=== PATIENT | female | born 1945 | race Caucasian/White ===

== ENCOUNTER 2019-09-08 12:00 | Outpatient (RCR) | payer MEDICARE, OTHER, SELFPAY ==
--- NOTE | 2019-08-11 17:50 | HP.PTEVAL ---
Patient's Visit Information CAMRON JACOME is a 73 year old F referred to Physical Therapy by Latasha Valladares MD with a diagnosis of Multiple falls. Date of Evaluation: 08/11/19 Physical Therapist: Madi Lara, EVELINET, OCS, CSCS - Visit Plan Frequency: 2x /Week Duration: 4-6 Weeks Plan: Neurocom balance assessment then 2x/week for 4 weeks for... Blanace ex per result, VOR, and machine based general strength to Silver Sneakers. - Subjective Findings: Had 4 falls in last 11 months. Injured each fall including L shoulder . Just moved to [place] from [place] in May. Slipped in May while living in [facility] as she slipped on ice adn landed on L arm extended overhead. Might have caught her foot on something rather tahn slip. In July, she got out of bed barefoot and slipped on carpet turning L. Landed on L shoulder again. Still can't carry purse on L shoulder. In February went headfirst down steps making a left turn. Last August caught foot going down steps and fell down two steps. Turning left seems to be common factor. H/o L45 discectomy and has dealth with back problems for years. Had a severe chest injury thr prior year that made her invalis for 6 months and made her weak. Laundry and dressing is happening as needed and as normal. No cane or walker. No dizzyness noticeable except at times when gets stuff out of boxes. - Pain L shoulder Pain Intensity (Out of 10): 0 Pain Intensity Range: 0, 4 Comment: dressing, turning in bed. - Objective Walks slow but I, trasnfers I but a little painful up from supine. steps reciprocal with no rail but slow today and needs to use rail for safety. R SLS 10 sec adn L 2-3 sec. UE AROM slow and painful on L shoulder with resisted felxion and exteranal rotationn being most painful but good AROM WFL otherwise. - B hallpike britni. VOR walking is a real challenge. LE strength 4- B ankle and knees and 3+ hips, no asymmetries. reflexes 2/3 patella and aachilles B. Sensations eems at deficit to gross light touch in L lateral distal LE(L5). coordination to reciprocal tapping is normal - Balance Scores Functional Gait Assessment Score: 26 % Disability: 13.3400 CATSIB Score (Max score 120 seconds): 93 - Goals Goal 1:: FGA to reduce fall risk. Goal Time Frame: 4-6 Weeks Goal 2:: I appropr HEP of balance and gym based general silver Carlos strength protocol Goal Time Frame: 4-6 Weeks Goal 3:: Pt feel balance 50% improved adn strength functional. Goal Time Frame: 4-6 Weeks - Rehabilitation Potential Physical Therapy Diagnosis: frequent falls with some balance defciits Rehabilitation Potential: Good - Anticipated Interventions Patient/Client Instruction: Educate patient on: Condition, Plan of Care For the Purpose of:: To improve muscle performance and motor function, To increase tolerance to activity/condition/position, To improve gait and locomotor functions Therapeutic Exercise to Include: Strength training, Balance training, Gait and locomotor training For the Purpose of:: To improve muscle performance and motor function, To improve ability of physical actions for home/community/work/leisure, To improve gait and locomotor functions, To improve balance Thank you for the opportunity to evaluate your patient. For Medicare and Medicare HMO plans, please review the plan of care and approve it. It will need to be FAXED BACK to us at [phone] for Medicare purposes. For Medicare only, by signing this I certify the plan of care. Please let me know if there are questions or concerns regarding this plan of care. Physician Signature: Date:
--- NOTE | 2019-08-15 13:22 | HP.PTCOM_ITS ---
PT Communication Note 08/15/[address] Latasha Valladares MD , Thank you for the referral of Dayana to [facility] for balance Assessment. I have enclosed a copy for your review. In summation, she scored fairly well on most aspects of the test. She did have some right and left excursion deficits on the Limits of Stability Test. With these results in mind, I plan to see her 2x/week for 4 weeks to work on VOR exercises, lateral weight shifts and getting on a general exercise program that she can continue on her own. If there are questions regarding her PT or balacne test, please feel free to call me. Thank you once again. Sincerely, EVELINE GoodmanT, OCS, CSCS Contact Information
--- NOTE | 2019-09-08 13:10 | HP.PTDCSUM ---
HP - PT D/C Summary It has been my pleasure to treat CAMRON JACOME under orders from Latasha Valladares MD, for the diagnosis of Multiple falls for a total of 10 visit(s). Discharge Date: 09/08/19 Please see the following information for a summary of their discharge status. - Subjective Subjective: Better. Feels stronger. She is going the right direction, legs feels tronger. Feels ready to be on her own. No falls. - Pain L shoulder Pain Intensity (Out of 10): Unrated - Overall Improvement % Improvement: 90 - Objective Objective/Function: FGA +1 and feeling much better. Goals have been met adn patient feels comfortable continuing on her own in gym - Goals Goal 1:: FGA to reduce fall risk. Goal Progress: Goal Met Goal 2:: I appropr HEP of balance and gym based general [place] Therapist strength protocol Goal Progress: Goal Met Goal 3:: Pt feel balance 50% improved adn strength functional. Goal Progress: Goal Met - Plan Plan: d/c , pt may request script for L shoulder if she continues to get pain in that joint. - D/C Information Discharge Comments: Doing better and will cotninue on her own I in gym as [employer] member. If there are questions or concerns regarding this patient's physical therapy, please feel free to call me at [phone]. Thank you for the referral of this patient. Sincerely, Madi Lara, DPT, OCS, CSCS
== END 2019-09-08 19:00 | disposition home or self-care (01) ==
LOC: PT 12:00
PROVIDERS: Referring Provider Obstetrics & Gynecology Gynecology; Visit Provider Obstetrics & Gynecology Gynecology
DX: R29.6 Repeated falls (principal)
CPT/HCPCS: 97110; 97162; 97164; 97750

== ENCOUNTER → 2020-05-09 07:03 | Outpatient (CLI) | payer MEDICARE, OTHER, SELFPAY ==
--- NOTE | 2020-05-09 07:05 | BI_ITS ---
MAMMOGRAPHY - BILATERAL SCREENING REASON FOR EXAM: Female, 74 years old. Routine annual screening examination. PERTINENT HISTORY: NO FM HX , PAST STEREO BX''S X 3 AND ASPIRATINS COMPS FROM [facility] COMPS 10-25-18,10-20-17,10-17-16 TECHNIQUE: Digital bilateral breast puma (3D mammographic acquisition) in the CC and MLO projections. 2-D mediolateral oblique (MLO) and craniocaudad (CC) views of both breasts were obtained. CAD: Full Field Digital Mammography with Computer Added Detection was performed. COMPARISON: 10/20/2017 and 10/17/2016 FINDINGS: Breast Composition: The breasts are almost entirely fatty. There are no dominant masses or suspicious calcifications. No other significant abnormalities are identified. BI/SCREEN MAMM (CAD) W/PUMA BILAT IMPRESSION: Stable bilateral screening mammogram. Yearly follow-up mammogram recommended. (A) ASSESSMENT CATEGORY: BIRADS Category 2: Benign. A letter regarding these results will be sent to the patient by the facility within 30 days. Approximately 10% of breast cancers are not detected by mammography. A normal mammogram should not delay biopsy of a clinically suspicious abnormality. [id number] Electronically Signed: Robert Bob, at 13:20 EDT Tel , Service support ,
== END ==
PROVIDERS: Referring Provider Obstetrics & Gynecology Gynecology; Visit Provider Obstetrics & Gynecology Gynecology
DX: Z12.31 Encounter for screening mammogram for malignant neoplasm of breast (principal)
CPT/HCPCS: 77063; 77067

== ENCOUNTER → 2020-11-15 14:11 | Outpatient (CLI) | payer MEDICARE, OTHER, SELFPAY ==
[2020-11-15 13:30] VITALS: BMI 20.7
--- NOTE | 2020-11-15 14:48 | RAD_ITS ---
INDICATION: Lumbar radiculopathy EXAMINATION/TECHNIQUE: X-RAY - XR Spine Lumbar Min 4 Views COMPARISON: None. FINDINGS: VERTEBRAE: Preserved vertebral body height. No fracture. No spondylolisthesis. Slight right convex curvature of the lumbar spine. Preservation of the normal lumbar lordosis. Moderate multilevel facet arthropathy. DISCS: Mild multilevel disc space narrowing, most notable at L3-4 and L4-5. INCLUDED ABDOMEN: Included bowel gas pattern is non-obstructive. RAD/L/S Spine Min 4 Views IMPRESSION: No acute abnormalities. Mild multilevel lumbar spondylosis. Moderate multilevel facet arthropathy. Electronically Signed: August Perera MD at 17:01 EDT Tel , Service support ,
[2020-11-15 15:02] LABS: Basophil# 0.04 X10^3/uL; Basophil% 0.5 % (0-1); Eosinophil# 0.04 X10^3/uL; Eosinophils% 0.5 % (0-5); Hematocrit 39.8 % (37-47); Hemoglobin 12.9 g/dL (12.0-15.0); Lymphocyte % 30.3 % (19-41); Mean Corp Hgb Conc 32.4 g/dL (32-36); Mean Corpuscular Volume 89.4 fL (81-99); Mean Platelet Vol. 8.9 fl (6.2-12.0); Monocyte# 0.63 X10^3/uL; Monocyte% 7.6 % (0-10); NRBC Flagged by Analyzer 0 % (0-5); Neutrophil # 5.01 X10^3/uL (2.7-7.7); Neutrophil % 60.7 % (47-70); Platelet Count 256 K/mm3 (150-450); RBC Distribution Width CV 13.4 % (11.6-14.6); RBC Distribution Width SD 43.5 fl (35.1-43.9); Red Blood Count 4.45 M/mm3 (4.2-5.4); White Blood Count 8.3 K/mm3 (4.4-11.0)
[2020-11-15 15:17] LABS: Hemoglobin A1c 5.3 % (3.8-5.6)
[2020-11-15 15:49] LABS: ALB/GLOB Ratio 1.1 RATIO (0.9-2.4); AST(SGOT) 20 U/L (15-37); Alanine Aminotransfer ALT/SGPT 24 U/L (13-56); Albumin, Serum 4.3 g/dL (3.2-5.0); Alkaline Phosphatase 60 U/L (45-117); Anion Gap 6 (5-15); BUN 16 mg/dL (7-18); BUN/Creat Ratio 22.9 RATIO (10-20); Calcium,Total 9.5 mg/dL (8.5-10.1); Chloride 99 mmol/L (98-107); Cholesterol 149 mg/dL (200); EST Glomerular Filtration Rate 86 mL/min (>60); Est Glom Filt Rate - Afr Amer 105 mL/min (>60); Globulin 3.9 g/dL (2.2-4.2); Glucose 75 mg/dL (74-106); High Density Lipoprotein 67 mg/dL; Potassium 3.7 mmol/L (3.5-5.1); Protein, Total 8.2 g/dL (6.4-8.2); Sodium Level 133 mmol/L (136-145); Triglycerides 96 mg/dL; Very Low Density Lipoprotein 19 mg/dL (5-40)
[2020-11-15 15:51] LABS: Vitamin B12 649 pg/mL (211-911); Vitamin D,25 Hydroxy 59.3 ng/mL
== END ==
PROVIDERS: PCP Internal Medicine; Referring Provider Internal Medicine; Visit Provider Internal Medicine
DX: G62.9 Polyneuropathy, unspecified (principal); M81.0 Age-related osteoporosis without current pathological fracture; E78.5 Hyperlipidemia, unspecified; M54.16 Radiculopathy, lumbar region; Z86.39 Personal history of other endocrine, nutritional and metabolic disease
CPT/HCPCS: 36415; 72110; 80053; 80061; 82306; 82607; 83036; 85025

== ENCOUNTER → 2020-11-27 12:30 | Outpatient (CLI) | payer MEDICARE, OTHER, SELFPAY ==
[2020-11-15 13:30] VITALS: BMI 20.7
--- NOTE | 2020-11-27 12:33 | BD_ITS ---
STUDY: DUAL ENERGY X-RAY ABSORPTIOMETRY / DXA REASON FOR EXAM: Female, 75 years old. Osteoporosis TECHNIQUE: Bone Mineral Density (BMD) measurements of lumbar spine and bilateral hips were obtained. COMPARISON: None. FINDINGS: Lumbar Spine (L1-L4): g/cm2 (0.888) / T-score (-2.4) / Z-score (-0.7) Findings are suggestive of osteopenia with a high fracture risk. Left Femur Total: g/cm2 (0.667) / T-score (-2.7) / Z-score (-0.9) Left Femoral Neck: g/cm2 (0.618) / T-score (-3.0) / Z-score (-1.1) Right Femur Total: g/cm2 (0.630) / T-score (-3.0) / Z-score (-1.2) Right Femoral Neck: g/cm2 (0.601) / T-score (-3.1) / Z-score (-1.2) BD/Dexa Bone Density Study IMPRESSION: The patient is considered osteoporotic as outlined below according to World Chad Organization (WHO) criteria with a high fracture risk. Reference Information: The T-score is the number of standard deviations above or below the standard which is normal for young adults at their peak bone mineral density. The World Health Organization (WHO) interprets the T-scores as follows: Above -1 Normal bone density Between -1 and -2.5 Osteopenia Equal to / or below -2.5 Osteoporosis As a practical clinical guideline, osteopenia may be graded as follows: Mild -1 through -1.5 Moderate -1.6 through -2.0 Severe -2.1 through -2.4 The Z-score is the number of standard deviations above or below age-matched controls. A Z-score of less than -1.5 would be considered abnormal. References: 1. NIH Osteoporosis and Related Bone Diseases www osteo.org 2. International Society for Clinical Densitometry www iscd.org 3. National Osteoporosis Foundation www nof.org Electronically Signed: Zackary Velez MD at 15:03 EDT , Service support ,
== END ==
PROVIDERS: PCP Internal Medicine; Referring Provider Internal Medicine; Visit Provider Internal Medicine
DX: M81.0 Age-related osteoporosis without current pathological fracture (principal)
CPT/HCPCS: 77080

== ENCOUNTER 2020-12-31 15:00 | Outpatient (RCR) | payer MEDICARE, OTHER, SELFPAY ==
[2020-11-15 13:30] VITALS: BMI 20.7
--- NOTE | 2020-11-21 13:53 | HP.PTEVAL ---
Patient's Visit Information CAMRON JACOME is a 75 year old F referred to Physical Therapy by Dr. Kizzy Welch MD with a diagnosis of ab of gait and mobility. Date of Evaluation: 11/21/20 Physical Therapist: LADY Foley - Visit Plan Frequency: 2x /Week Duration: 6 Weeks Plan: 2X/ week for 4 weeks for vestibular inputs on and off the foam and EC/EO, walking with head turns, dynamic balance, turning 180 degrees, functional activities such as curbs and steps, and L LE strengthening with HEP - Subjective Pt has a history of falls with 4 falls in 11 months and she was here a year ago in Aug and they checked her for balance issues and she does not think that she had any neuro going on. She was going to do H&W but did not get to go due to COVID and she has been sitting for a year due to that. Her issue before was her L leg and she was falling to the L and she thought that she had a weak L leg. Now she notices that she can not stand alone on either leg and has to lean on something to put her pants on. She has a one level condo and she kind of wobbles and she holds onto hernandez and furniture. The last time she fell was 07-14-2019. She walks without AD. She notices a decrease senstation in the forefeet and she also noticed that the bottoms of her feet turn purple. It seems that when she is sitting that they turn purple. She has no DM. Back surgery in 1999. She has occ tingling down the L occ..... She is hoping that being active will help. Stairs: she fell 4 times down the stairs by tripping. She had different shoes each time. She hold onto hand rail. She is never dizzy. Sit to stand: can get up with out the use of her arms. 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 Apr 24, 2019 she spent 2 months in a hotel and slipped out of the bathroom and slid across the floor and latnded on L side with arm overhead and injured her L shoulder and did not get into see Dr for 2 days and did get an x-ray and no fracture. She did get into PT and had 4 sessions. Fell again on Dec 5th and reinjured it but did nothing because of COVID. She has not been able to use her L arm until this past weekend. She could not raise her arm, could not lay on the L side, could not lift anything because of the pain. Now she has a stiff neck but no stabbing sharp pains that she had. She does not want to do anything right now or PT for her shoulder as she is not having the stabbing pains any longer. Back pain: She reports that her back pain is ok. Dr wanted an x-ray due to L4/L5 and that disc have ruptued after the surgery.... but her pain is not there and when it is it is managable. - Objective Gait: Walks with very guarded gait with occ veering, when pt goes to turn she had LOB to the L. LE MMT: R hip flex 4-/5 and L hip flex 3+/5, B hip abd 4-/5, B hip ext 3+/5, R knee flex 4/5 and L knee flex 4-/5, B knee ext 4/5. Pt is able to walk on heels and toes. Stairs: able to go up and down the stairs recip with 2 handrails. SIt to stand: Pt is able to sit to stand not using her UE's. Patellar DTR's: 2/3. FGA: 21. CATSIB: 90/120 - Balance Scores Functional Gait Assessment Score: 21 % Disability: 30.0000 CATSIB Score (Max score 120 seconds): 90 - Goals Goal 1:: I HEP Goal Time Frame: 2-4 Weeks Goal 2:: Increase FGA score by 5 points to decrease fall risk (at time of eval: (FGA 21) Goal Time Frame: 4-6 Weeks Goal 3:: Increase CATSIB by 20 points ( 90 at time of the eval) to decrease fall risk. Goal Time Frame: 4-6 Weeks - Rehabilitation Potential Rehabilitation Potential: Good - Anticipated Interventions Patient/Client Instruction: Educate patient on: Condition, Plan of Care For the Purpose of:: To improve muscle performance and motor function, To improve ability to perform ADL's, To increase tolerance to activity/condition/position, To improve performance and independence with ADL's, To decrease level of supervision to perform tasks, To improve ability of physical actions for home/community/work/leisure, To improve gait and locomotor functions, To improve endurance, To improve balance, To improve safety with gait Therapeutic Exercise to Include: Strength training, Balance training, Postural training, Flexibilty training, Gait and locomotor training, Neuromotor development, Active ROM For the Purpose of:: To improve muscle performance and motor function, To improve ability to perform ADL's, To increase tolerance to activity/condition/position, To improve performance and independence with ADL's, To decrease level of supervision to perform tasks, To improve ability of physical actions for home/community/work/leisure, To improve gait and locomotor functions, To improve balance, To improve safety with gait Functional Training to Include: Gait training For the Purpose of:: To improve gait and locomotor functions, To improve safety with gait Thank you for the opportunity to evaluate your patient. For Medicare and Medicare HMO plans, please review the plan of care and approve it. It will need to be FAXED BACK to us at [phone] for Medicare purposes. For Medicare only, by signing this I certify the plan of care. Please let me know if there are questions or concerns regarding this plan of care. Physician Signature: Date:
--- NOTE | 2021-05-15 11:47 | HP.PTDCSUM ---
It has been my pleasure to treat CAMRON JACOME referred by Dr. Kizzy Welch MD, with the diagnosis of ab of gait and mobility for a total of 12 visit(s). Discharge Date: 12/31/20 Please see the following information for a summary of their discharge status. Subjective: Pt has been doing a chin tuck every morning and that helps. She has also been doing some upper trap and levator. She still feels sorness with doing work around the house. back pain Pain Intensity (Out of 10): 0 neck pain Pain Intensity (Out of 10): 0 % Improvement: 80 Objective/Function: FGA 28/30. CATSIB 120/120. Stairs: up and down recip with no hand rail with SBA Goal 1:: I HEP Goal Progress: Goal Met Goal 2:: Increase FGA score by 5 points to decrease fall risk (at time of eval: (FGA 21) Goal Progress: Goal Met Goal 3:: Increase CATSIB by 20 points ( 90 at time of the eval) to decrease fall risk. Goal Progress: Goal Met Plan: DC PT to HEP Discharge Comments: DC PT to HEP If there are questions or concerns regarding this patient's physical therapy, please feel free to call me at [phone]. Thank you for the referral of this patient. Sincerely, Faiza Moya, LADY Balance/Gait/Functional tests - Balance/Special Test Scores Functional Gait Assessment Score: 28 % Disability: 6.6700 CATSIB Score (Max score 120 seconds): 120 Lower Extremity Functional Score: 60
== END 2020-12-31 19:00 | disposition home or self-care (01) ==
LOC: PT 15:00
PROVIDERS: PCP Internal Medicine; Referring Provider Internal Medicine; Visit Provider Internal Medicine
DX: R26.89 Other abnormalities of gait and mobility (principal); M25.512 Pain in left shoulder; M54.16 Radiculopathy, lumbar region
CPT/HCPCS: 97110; 97140; 97162; 97530

== ENCOUNTER → 2021-12-24 | Outpatient (CLI) | payer MEDICARE, OTHER, SELFPAY ==
--- NOTE | 2021-12-24 14:50 | RAD_ITS ---
EXAM: XR CERVICAL SPINE, 2 OR 3 VIEWS CLINICAL INDICATION: Chronic neck pain TECHNIQUE: Frontal and lateral views of the cervical spine. This report was created using [employer] report [employer] technology. COMPARISON: None. FINDINGS: VERTEBRAE: Unremarkable. Preserved vertebral body height. No acute fracture. No spondylolisthesis. Preservation of the normal cervical lordosis. No significant facet arthropathy. DISC SPACES: Unremarkable. Disc spaces are maintained. SOFT TISSUES: Unremarkable. No prevertebral soft tissue widening. LUNG APICES: Clear. RAD/Cerv Spine 2 or 3 Views IMPRESSION: No evidence of acute fracture or spondylolisthesis. Electronically Signed: Eric Gilmore MD at 18:03 EDT ,
== END | disposition home or self-care (01) ==
LOC: MTRAD 14:35
PROVIDERS: PCP Internal Medicine; Referring Provider Internal Medicine; Visit Provider Internal Medicine
DX: M54.2 Cervicalgia (principal); G89.29 Other chronic pain
CPT/HCPCS: 72040

== ENCOUNTER → 2022-01-29 | Outpatient (CLI) | payer MEDICARE, OTHER, SELFPAY ==
--- NOTE | 2022-01-29 07:01 | BI_ITS ---
MAMMOGRAPHY - BILATERAL SCREENING REASON FOR EXAM: Female, 76 years old. Routine annual screening examination. PERTINENT HISTORY: Reported history of past stereotactic biopsies. No personal or family history of breast cancer. TECHNIQUE: Digital bilateral breast puma (3D mammographic acquisition) in the CC and MLO projections. 2-D mediolateral oblique (MLO) and craniocaudad (CC) views of both breasts were obtained. CAD: Full Field Digital Mammography with Computer Added Detection was performed. COMPARISON: Mammogram from 05/09/2020, 03/05/2012, 02/18/2011. Left breast diagnostic mammogram from 02/07/2010 FINDINGS: Breast Composition: The breasts are heterogeneously dense, which may obscure small masses. There is a new asymmetry seen only on cc views, in the left inner breast posterior depth approximately 9.5 cm posterior to nipple adjacent to a small stable benign-appearing calcification. Further assessment with spot compression views and ultrasound if needed are recommended. No other significant abnormalities are identified. BI/SCRN MAMM (CAD)W/PUMA BILAT IMPRESSION: Further imaging evaluation recommended, as described above. (E) Recall Side: Left Breast ASSESSMENT CATEGORY: BIRADS Category 0: Incomplete. Need additional imaging evaluation. A letter regarding these results will be sent to the patient by the facility within 30 days. Approximately 10% of breast cancers are not detected by mammography. A normal mammogram should not delay biopsy of a clinically suspicious abnormality. [id number] Electronically Signed: Josue Bernabe, at 10:15 EDT ,
== END | disposition home or self-care (01) ==
LOC: OPBI 07:00
PROVIDERS: PCP Internal Medicine; Visit Provider Internal Medicine
DX: Z12.31 Encounter for screening mammogram for malignant neoplasm of breast (principal)
CPT/HCPCS: 77063; 77067

== ENCOUNTER → 2022-01-30 | Outpatient (CLI) | payer MEDICARE, OTHER, SELFPAY ==
--- NOTE | 2022-01-30 09:03 | BI_ITS ---
MAMMOGRAPHY - UNILATERAL DIAGNOSTIC: LEFT BREAST REASON FOR EXAM: Female, 76 years old. ABN MAMM PERTINENT HISTORY: Non-contributory. TECHNIQUE: Digital examination. Mediolateral oblique (MLO) and craniocaudad (CC) views of the breast were obtained. CAD: CAD was not performed on this study. COMPARISON: 01/29/2022 FINDINGS: Breast Composition: The breasts are heterogeneously dense, which may obscure small masses. Focal compression views confirm a 1 cm irregular obscured equal density mass in the lower inner quadrant of the left breast at posterior depth and ultrasound is recommended for further evaluation. No other significant abnormalities are identified. BI/DIAG MAMM W/CAD, UNILAT IMPRESSION: Further ultrasonographic evaluation recommended, as described above. ASSESSMENT CATEGORY: BIRADS Category 0: Incomplete. Need additional imaging evaluation. A letter regarding these results will be sent to the patient by the facility within 30 days. FOLLOW-UP RECOMMENDATION: Ultrasound recommended. (I) Approximately 10% of breast cancers are not detected by mammography. A normal mammogram should not delay biopsy of a clinically suspicious abnormality. Electronically Signed: Reid Parham MD at 9:49 EDT ,
--- NOTE | 2022-01-30 09:53 | US_ITS ---
STUDY: ULTRASOUND BREAST - LEFT REASON FOR EXAM: Female, 76 years old. Abnormal screening mammogram. TECHNIQUE: Axial and longitudinal images of the LEFT breast were performed with a high resolution ultrasound transducer. # OF IMAGES: 53 COMPARISON: Screening mammogram 01/29/2022, diagnostic mammogram earlier today FINDINGS: LEFT Breast: Homogeneous fatty background echotexture. Multiple longitudinal and transverse ultrasound images of the lower inner quadrant of the left breast fail to demonstrate a discrete mass most consistent with normal breast parenchyma.: US/Breast Limited Unilateral IMPRESSION: Normal left breast ultrasound consistent with normal breast parenchyma. ASSESSMENT CATEGORY: BIRADS Category 1: Negative. A letter regarding these results will be sent to the patient by the facility within 30 days. Electronically Signed: Reid Parham MD at 11:25 EDT ,
== END | disposition home or self-care (01) ==
LOC: OPBI 09:01
PROVIDERS: PCP Internal Medicine; Visit Provider Internal Medicine
DX: R92.8 Other abnormal and inconclusive findings on diagnostic imaging of breast (principal)
CPT/HCPCS: 76642; 77065

== ENCOUNTER → 2022-02-11 | Outpatient (CLI) | payer MEDICARE, OTHER, SELFPAY ==
[2022-02-11 15:06] LABS: Absolute Lymphocyte Count 1.65 X10^3/uL (0.83-4.51); Absolute Neutrophil Count 2.9 X10^3/uL (2.0-7.7); Basophil# 0.03 X10^3/uL; Basophil% 0.6 % (0-1); Eosinophil# 0.03 X10^3/uL; Eosinophils% 0.6 % (0-5); Hematocrit 37.7 % (37-47); Hemoglobin 12.3 g/dL (12.0-15.0); Lymphocyte # 1.65 X10^3/ul (0.83-4.51); Lymphocyte % 32.2 % (19-41); Mean Corp Hgb Conc 32.6 g/dL (32-36); Mean Corpuscular Hgb 29.5 pg (27.0-32.0); Mean Corpuscular Volume 90.4 fL (81-99); Monocyte# 0.48 X10^3/uL; Monocyte% 9.4 % (0-10); NRBC Flagged by Analyzer 0 % (0-5); Neutrophil # 2.93 X10^3/uL (2.7-7.7); Platelet Count 212 K/mm3 (150-450); RBC Distribution Width CV 13.1 % (11.6-14.6); RBC Distribution Width SD 42.9 fl (35.1-43.9); Red Blood Count 4.17 M/mm3 (4.2-5.4); White Blood Count 5.1 K/mm3 (4.4-11.0)
[2022-02-11 15:41] LABS: ALB/GLOB Ratio 1.1 RATIO (0.9-2.4); AST(SGOT) 21 U/L (15-37); Alanine Aminotransfer ALT/SGPT 21 U/L (13-56); Albumin, Serum 3.8 g/dL (3.2-5.0); Alkaline Phosphatase 45 U/L (45-117); Anion Gap 4 (5-15); BUN 8 mg/dL (7-18); BUN/Creat Ratio 11.6 RATIO (10-20); Chloride 102 mmol/L (98-107); Cholesterol 142 mg/dL (200); Creatinine, Serum 0.69 mg/dL (0.55-1.02); EST Glomerular Filtration Rate 88 mL/min (>60); Est Glom Filt Rate - Afr Amer 106 mL/min (>60); Globulin 3.5 g/dL (2.2-4.2); Glucose 101 mg/dL (74-106); High Density Lipoprotein 63 mg/dL; Potassium 3.9 mmol/L (3.5-5.1); Protein, Total 7.3 g/dL (6.4-8.2); Sodium Level 136 mmol/L (136-145); Triglycerides 109 mg/dL; Very Low Density Lipoprotein 22 mg/dL (5-40)
== END | disposition home or self-care (01) ==
LOC: BIMLAB 13:29
PROVIDERS: PCP Internal Medicine; Visit Provider Internal Medicine
DX: E78.5 Hyperlipidemia, unspecified (principal)
CPT/HCPCS: 36415; 80053; 80061; 85025

== ENCOUNTER → 2023-04-02 | Outpatient (CLI) | payer MEDICARE, OTHER, SELFPAY ==
[2023-04-02 16:29] LABS: Absolute Lymphocyte Count 2.13 X10^3/uL (0.83-4.51); Absolute Neutrophil Count 3.3 X10^3/uL (2.0-7.7); Basophil# 0.03 X10^3/uL; Basophil% 0.5 % (0-1); Eosinophil# 0.04 X10^3/uL; Eosinophils% 0.7 % (0-5); Hematocrit 38.9 % (37-47); Hemoglobin 12.8 g/dL (12.0-15.0); Lymphocyte # 2.13 X10^3/ul (0.83-4.51); Lymphocyte % 34.8 % (19-41); Mean Corp Hgb Conc 32.9 g/dL (32-36); Mean Corpuscular Hgb 29.5 pg (27.0-32.0); Mean Corpuscular Volume 89.6 fL (81-99); Mean Platelet Vol. 9.7 fl (6.2-12.0); Monocyte# 0.57 X10^3/uL; Monocyte% 9.3 % (0-10); NRBC Flagged by Analyzer 0 % (0-5); Neutrophil # 3.33 X10^3/uL (2.7-7.7); Neutrophil % 54.4 % (47-70); Platelet Count 215 K/mm3 (150-450); RBC Distribution Width CV 13.3 % (11.6-14.6); RBC Distribution Width SD 43.8 fl (35.1-43.9); Red Blood Count 4.34 M/mm3 (4.2-5.4); White Blood Count 6.1 K/mm3 (4.4-11.0)
[2023-04-02 16:52] LABS: Vitamin D,25 Hydroxy 93.3 ng/mL
[2023-04-02 16:59] LABS: ALB/GLOB Ratio 1.1 RATIO (0.9-2.4); AST(SGOT) 21 U/L (15-37); Alanine Aminotransfer ALT/SGPT 23 U/L (13-56); Albumin, Serum 4.1 g/dL (3.2-5.0); Alkaline Phosphatase 47 U/L (45-117); Anion Gap 7 (5-15); BUN 11 mg/dL (7-18); BUN/Creat Ratio 16.7 RATIO (10-20); Chloride 100 mmol/L (98-107); Cholesterol 133 mg/dL (200); Creatinine, Serum 0.66 mg/dL (0.55-1.02); EST Glomerular Filtration Rate 92 mL/min (>60); Est Glom Filt Rate - Afr Amer 112 mL/min (>60); Globulin 3.6 g/dL (2.2-4.2); Glucose 86 mg/dL (74-106); High Density Lipoprotein 69 mg/dL; Potassium 4.2 mmol/L (3.5-5.1); Protein, Total 7.7 g/dL (6.4-8.2); Sodium Level 134 mmol/L (136-145); T4 Free Direct 1.25 ng/dL (0.76-1.46); Thyroid Stim Hormone (TSH) 2.76 uIU/mL (0.358-3.74); Triglycerides 55 mg/dL; Very Low Density Lipoprotein 11 mg/dL (5-40)
== END | disposition home or self-care (01) ==
LOC: BIMLAB 15:14
PROVIDERS: PCP Internal Medicine; Referring Provider Internal Medicine; Visit Provider Internal Medicine
DX: E55.9 Vitamin D deficiency, unspecified (principal); E78.5 Hyperlipidemia, unspecified; I10 Essential (primary) hypertension
CPT/HCPCS: 36415; 80053; 80061; 82306; 84439; 84443; 85025

== ENCOUNTER → 2023-04-14 | Outpatient (CLI) | payer MEDICARE, OTHER, SELFPAY ==
--- NOTE | 2023-04-14 15:11 | BI_ITS ---
MAMMOGRAPHY - BILATERAL SCREENING REASON FOR EXAM: Female, 77 years old. Routine annual screening examination. PERTINENT HISTORY: Non-contributory. History of prior stereotactic breast biopsies. TECHNIQUE: Digital bilateral breast puma (3D mammographic acquisition) in the CC and MLO projections. 2-D mediolateral oblique (MLO) and craniocaudad (CC) views of both breasts were obtained. CAD: Full Field Digital Mammography with Computer Added Detection was performed. COMPARISON: Comparison is made with prior study dated January 29, 2022 and May 09, 2020. FINDINGS: Breast Composition: The breasts are heterogeneously dense, which may obscure small masses. There are no dominant masses or suspicious calcifications. 2 tissue markers are seen in the superior retroareolar region of the left breast. No other significant abnormalities are identified. There has been no significant change since the prior study. BI/SCRN MAMM (CAD)W/PUMA BILAT IMPRESSION: Stable bilateral screening mammogram. Yearly follow-up mammogram recommended. (A) ASSESSMENT CATEGORY: BIRADS Category 2: Benign. A letter regarding these results will be sent to the patient by the facility within 30 days. Approximately 10% of breast cancers are not detected by mammography. A normal mammogram should not delay biopsy of a clinically suspicious abnormality. [id number] Electronically Signed: Zackary Velez MD at 8:35 EDT ,
--- NOTE | 2023-04-14 15:15 | BD_ITS ---
STUDY: DUAL ENERGY X-RAY ABSORPTIOMETRY / DXA REASON FOR EXAM: Female, 77 years old. Post menopausal TECHNIQUE: Bone Mineral Density (BMD) measurements of lumbar spine and bilateral hips were obtained. COMPARISON: Comparison is made with prior study November 27, 2020. FINDINGS: Lumbar Spine (L1-L4): g/cm2 (0.791) / T-score (-2.3) / Z-score (0.3) Findings are suggestive of osteopenia with a high fracture risk. Left Femur Total: g/cm2 (0.619) / T-score (-2.6) / Z-score (-0.7) Left Femoral Neck: g/cm2 (0.517) / T-score (-3.0) / Z-score (-0.7) Right Femur Total: g/cm2 (0.591) / T-score (-2.9) / Z-score (-0.9) Right Femoral Neck: g/cm2 (0.502) / T-score (-3.1) / Z-score (-0.9) The T-Scores on the most recent prior examination were: Lumbar Spine (L1-L4): There has been improvement of bone density since the previous examination. Left Femur Total: which represents an improvement of 1.5%. Right Femur Total: which represents an improvement of 2.8%. BD/Dexa Bone Density Study IMPRESSION: The patient is considered osteoporotic as outlined below according to World Chad Organization (WHO) criteria with a high fracture risk. There has been improvement of bone density since the previous examination. Reference Information: The T-score is the number of standard deviations above or below the standard which is normal for young adults at their peak bone mineral density. The World Health Organization (WHO) interprets the T-scores as follows: Above -1 Normal bone density Between -1 and -2.5 Osteopenia Equal to / or below -2.5 Osteoporosis As a practical clinical guideline, osteopenia may be graded as follows: Mild -1 through -1.5 Moderate -1.6 through -2.0 Severe -2.1 through -2.4 The Z-score is the number of standard deviations above or below age-matched controls. A Z-score of less than -1.5 would be considered abnormal. References: 1. NIH Osteoporosis and Related Bone Diseases www osteo.org 2. International Society for Clinical Densitometry www iscd.org 3. National Osteoporosis Foundation www nof.org Electronically Signed: Zackary Velez MD at 8:56 EDT ,
== END | disposition home or self-care (01) ==
LOC: OPBD 15:09
PROVIDERS: PCP Internal Medicine; Referring Provider Internal Medicine; Visit Provider Internal Medicine
DX: M81.0 Age-related osteoporosis without current pathological fracture (principal); Z12.31 Encounter for screening mammogram for malignant neoplasm of breast
CPT/HCPCS: 77063; 77067; 77080

== ENCOUNTER → 2023-05-01 | Outpatient (CLI) | payer MEDICARE, OTHER, SELFPAY ==
--- NOTE | 2023-05-01 14:49 | ST.MBS ---
Modified Barium Swallow Patient Information Study Date: 05/01/23 Study Time: 13:00 Direct Billable Minutes: 88 Total Minutes procedure & reportin Diagnosis: Dysphagia (R13.10) Referring Physician: Kizzy Welch Reason for Referral: Objectively assess swallow function, assess risk for aspiration, and determine recommendations for least restrictive diet textures and compensatory strategies to improve safety of swallow. Medical History: The patient has PMH including HTN, osteoporosis, DDD, GERD, and hiatal hernia (SEE EMR for full PMH). She is a retired RN. She has had GERD since 1994. She took medication for a couple of years, but then discontinued use. She had an EGD completed in 2004 which revealed hiatal hernia. She reports frequent belching with food and drink. She also unintentionally experienced 20lbs of weight loss in 2019 that she has not been able to gain back despite efforts to eat more. Her voice is very hoarse and often goes out. Per patient, it is worse in the morning. She has not been seen by an ENT. The patient was referred for MBSS for increased swallowing difficulty. She reports coughing a lot due to a tickle on her throat. She sometimes gets in coughing spells with food or drink when it feels stuck in her throat. She has discontinued taking certain vitamins due to them feeling like she was choking on them. It can be hard to swallow bread as it feels it gets stuck. Current Diet Ordered: Regular textures / Thin liquids Dentition: WNL Mental Status: WNL Respiratory Status: Oxygenating on Room Air Penetration-Aspiration Scale Penetration-Aspiration Scale: OBJECTIVE ASSESSMENT OF SWALLOW FUNCTION (QUANTITATIVE ? PER TRIAL): PENETRATION / ASPIRATION SCALE (GARCÍA): 1 = does not enter airway 2 = enters airway/above vocal folds/ejected 3 = enters airway/above vocal folds/not ejected 4 = enters airway/contacts vocal folds/ejected 5 = enters airway/contacts vocal folds/not ejected 6 = enters airway/below vocal folds/ejected 7 = enters airway/below vocal folds/not ejected despite effort 8 = enters airway/below vocal folds/no effort VIDEOFLOROSCOPIC SCALE SCORE (GARCÍA): Grade I = aspiration of material that has penetrated into the laryngeal vestibule, intact cough reflex Grade II = aspiration < 10 % of the bolus, intact cough reflex Grade III = aspiration of < 10 % of the bolus, reduced cough reflex or aspiration of > 10 % of the bolus, intact cough reflex Grade IV = aspiration of > 10 % of the bolus, reduced cough reflex Penetration-Aspiration Scale Score Thin Liquid via teaspoon: Result: 1= does not enter airway Thin Liquid via teaspoon Trial 2: Result: 1= does not enter airway Thin liquid via single cup sip: Result: 2= enter airway/above vocal folds/ejected (reflexive throat clear effectively cleared penetrated contrast) Tedrow thick liquid via single cup sip: Result: 1= does not enter airway Pudding via teaspoon with esophageal screen: Result: 1= does not enter airway Thin liquid via sequential straw sip with esophageal screen: Result: 4= enters airway/contacts vocal folds/ejected (reflexive throat clear effectively cleared penetrated contrast) 1/2 Cookie: Result: 1= does not enter airway Thin liquid via single straw sip with effortful swallow: Result: 2= enter airway/above vocal folds/ejected Oral Phase Labial Seal: No Labial Escape Tongue Control During Bolus Hold: Posterior escape of less than half of bolus Bolus Preparation/Mastication: Timely and efficient chewing and mashing Bolus Transport/Lingual Motion: Delayed initiation of tongue motion Oral Residue: Residue collection on oral structures (piecemeal deglutition with pudding) Pharyngeal Phase Initiation of Pharyngeal Swallow: Bolus head in pyriforms Soft Palate Elevation: No bolus between soft palate and pharyngeal wall Laryngeal Elevation: Partial superior movement thyroid cart/partial apprx aryt-epig petiole Anterior Hyoid Excursion: Partial anterior movement Epiglottic Movement: Complete inversion Laryngeal Vestibule Closure at Height of Swallow: Incomplete; narrow column of air/contrast in laryngeal vestibule Pharyngeal Stripping Wave: Present - diminished Pharyngoesophageal Segment Opening: Parital distension and partial duration; parital obstruction of flow Tongue Base Retraction: Narrow column of contrast between tongue base & post. pharyngeal wall Pharyngeal Residue: Collection of residue within or on pharyngeal structures Esophageal Phase Esophageal Clearance: Esophageal retention w/ retrograde flow below pharyngoesophageal seg. Diagnosis/Impression Diagnosis: Mild oropharyngeal dysphagia (R13.12), Esophageal dysphagia (R13.14) Impression: The oral phase is primarily marked by... -Decreased bolus control with premature loss of thin liquids to the pharynx prior to swallow onset. With sequential sips via straw, thin liquids spilled to the laryngeal vestibule prior to swallow onset, placing the patient at increased risk for aspiration. The pharyngeal phase is primarily marked by... -Mildly decreased airway closure during the swallow due to decreased anterior hyoid excursion and laryngeal elevation. The patient demonstrated laryngeal penetration of thin liquids 3X during the study. She demonstrated reflexive throat clear on 2 of 3 instances. All three trials fully ejected from the laryngeal vestibule after the swallow. No aspiration occurred. -Mildly decreased tongue base retraction, pharyngeal stripping wave, and UES opening/duration which resulted in mild pharyngeal residues after the swallow. The esophageal phase is primarily marked by... -Esophageal retention of pudding throughout mid and lower esophagus, which mostly cleared with thin liquid wash. Mild retention of thin liquids in lower esophagus with min retrograde flow. Recommendations Diet: Regular Textures and Thin Liquids Compensatory Strategies: Small Bites, Small Sips (Effortful swallows when taking sips), Slow Rate, Alternate bites/solids and sips/liquids (Take a sip after every 1-2 bites to promote improved esophageal clearance of foods), Sitting upright and Remain sitting upright for 30 minutes after PO intake Recommend Repeat Modified Barium Swallow: No Need for Skilled Speech Therapy Services: Yes Comment: Will recommend dysphagia therapy for home oropharyngeal exercise program to promote improved bolus control, laryngeal elevation, anterior hyoid excursion, UES opening/duration, and pharyngeal contraction (lingual resistance, CTAR, Ramona, effortful swallow, Shaker). Would strongly recommend voice therapy following recommended ENT consult to address hoarseness and to implement vocal hygiene strategies. Recommended Referrals: GI Consult (Esophageal retention of pudding throughout mid and lower esophagus. Retention of liquids in lower esophagus with min retrograde flow.), ENT Consult (Hoarse vocal quality, patient often experiences her voice going out) and Dietitian Consult (Patient lost 20lbs in 2-3 months in 2019 and has been unable to gain it back.) Education Completed: 1. Described result of evaluation., 2. Pt understands evaluation & agrees with goals and treatment plan. and 7. Pt requires further education on strategies & risks. Status Active ST Patient: Active Contact Information [facility] Speech Therapy:: Vilma Parker M.A. [facility]SAFET[employer] SEC[employer] OFFICER Speech-Language Pathologist [facility] [address] [place] [address] [phone]
== END | disposition home or self-care (01) ==
LOC: RAD 12:33
PROVIDERS: PCP Internal Medicine; Referring Provider Internal Medicine; Visit Provider Internal Medicine
DX: R13.10 Dysphagia, unspecified (principal)
CPT/HCPCS: 74230; 92611

== ENCOUNTER → 2024-04-12 | Outpatient (CLI) | payer MEDICARE, OTHER, SELFPAY ==
[2024-04-12 17:48] LABS: Absolute Lymphocyte Count 1.14 X10^3/uL (0.83-4.51); Absolute Neutrophil Count 3.1 X10^3/uL (2.0-7.7); Basophil# 0.03 X10^3/uL; Basophil% 0.6 % (0-1); Eosinophil# 0.02 X10^3/uL; Eosinophils% 0.4 % (0-5); Hematocrit 37.1 % (37-47); Hemoglobin 11.9 g/dL (12.0-15.0); Lymphocyte # 1.14 X10^3/ul (0.83-4.51); Lymphocyte % 23.6 % (19-41); Mean Corp Hgb Conc 32.1 g/dL (32-36); Mean Corpuscular Hgb 28.8 pg (27.0-32.0); Mean Corpuscular Volume 89.8 fL (81-99); Mean Platelet Vol. 9.6 fl (6.2-12.0); Monocyte# 0.57 X10^3/uL; Monocyte% 11.8 % (0-10); NRBC Flagged by Analyzer 0 % (0-5); Neutrophil # 3.05 X10^3/uL (2.7-7.7); Neutrophil % 63.2 % (47-70); Platelet Count 174 K/mm3 (150-450); RBC Distribution Width CV 13.1 % (11.6-14.6); RBC Distribution Width SD 43.3 fl (35.1-43.9); Red Blood Count 4.13 M/mm3 (4.2-5.4); White Blood Count 4.8 K/mm3 (4.4-11.0)
[2024-04-12 18:27] LABS: Vitamin D,25 Hydroxy 66.6 ng/mL
[2024-04-12 18:44] LABS: ALB/GLOB Ratio 1.2 RATIO (0.9-2.4); AST(SGOT) 26 U/L (15-37); Alanine Aminotransfer ALT/SGPT 24 U/L (13-56); Albumin, Serum 4.1 g/dL (3.2-5.0); Alkaline Phosphatase 48 U/L (45-117); Anion Gap 10 (5-15); BUN 19 mg/dL (7-18); BUN/Creat Ratio 27.9 RATIO (10-20); Calcium,Total 10.5 mg/dL (8.5-10.1); Chloride 99 mmol/L (98-107); Cholesterol 148 mg/dL (200); Creatinine, Serum 0.68 mg/dL (0.55-1.02); EST Glomerular Filtration Rate 88 mL/min (>60); Est Glom Filt Rate - Afr Amer 107 mL/min (>60); Globulin 3.5 g/dL (2.2-4.2); Glucose 84 mg/dL (74-106); High Density Lipoprotein 70 mg/dL; Potassium 3.5 mmol/L (3.5-5.1); Protein, Total 7.6 g/dL (6.4-8.2); Sodium Level 134 mmol/L (136-145); Triglycerides 76 mg/dL; Very Low Density Lipoprotein 15 mg/dL (5-40)
== END | disposition home or self-care (01) ==
LOC: MTLAB 16:47
PROVIDERS: PCP Internal Medicine; Referring Provider Internal Medicine; Visit Provider Internal Medicine
DX: E78.5 Hyperlipidemia, unspecified (principal); M81.0 Age-related osteoporosis without current pathological fracture
CPT/HCPCS: 36415; 80053; 80061; 82306; 85025

== ENCOUNTER → 2024-04-15 | Outpatient (CLI) | payer MEDICARE, OTHER, SELFPAY ==
--- NOTE | 2024-04-15 08:03 | BI_ITS ---
MAMMOGRAPHY - BILATERAL SCREENING REASON FOR EXAM: Female, 78 years old. Routine annual screening examination. PERTINENT HISTORY: Non-contributory. History of prior stereotactic breast biopsies. TECHNIQUE: Digital bilateral breast puma (3D mammographic acquisition) in the CC and MLO projections. 2-D mediolateral oblique (MLO) and craniocaudad (CC) views of both breasts were obtained. CAD: Full Field Digital Mammography with Computer Added Detection was performed. COMPARISON: Comparison is made with prior study of April 14, 2023 and January 29, 2022. FINDINGS: Breast Composition: The breasts are heterogeneously dense, which may obscure small masses. There is a 2 cm x 1.6 cm well-defined nodule in the upper central portion of the left breast. A tissue clip marker seen within. A tissue clip marker is also seen in the retroareolar region of the left breast. No other significant abnormalities are identified. BI/SCRN MAMM (CAD)W/PUMA BILAT IMPRESSION: 2 cm x 1.6 cm well-defined nodule in the upper central portion of the left breast. Correlation with ultrasound is recommended. ASSESSMENT CATEGORY: BIRADS Category 0: Incomplete. Need additional imaging evaluation. A letter regarding these results will be sent to the patient by the facility within 30 days. Approximately 10% of breast cancers are not detected by mammography. A normal mammogram should not delay biopsy of a clinically suspicious abnormality. [id number] Electronically Signed: Zackary Velez MD at 8:46 EDT ,
== END | disposition home or self-care (01) ==
LOC: OPBI 08:02
PROVIDERS: PCP Internal Medicine; Referring Provider Internal Medicine; Visit Provider Internal Medicine
DX: Z12.31 Encounter for screening mammogram for malignant neoplasm of breast (principal)
CPT/HCPCS: 77063; 77067

== ENCOUNTER → 2024-04-18 | Outpatient (CLI) | payer MEDICARE, OTHER, SELFPAY ==
[2024-04-18 16:36] LABS: Vitamin B12 673 pg/mL (211-911)
== END | disposition home or self-care (01) ==
LOC: BIMLAB 14:18
PROVIDERS: PCP Internal Medicine; Referring Provider Internal Medicine; Visit Provider Internal Medicine
DX: E07.9 Disorder of thyroid, unspecified (principal); G62.9 Polyneuropathy, unspecified
CPT/HCPCS: 36415; 82607; 84439; 84443

== ENCOUNTER → 2024-04-20 | Outpatient (CLI) | payer MEDICARE, OTHER, SELFPAY ==
--- NOTE | 2024-04-20 07:45 | US_ITS ---
STUDY: ULTRASOUND BREAST - LEFT REASON FOR EXAM: Female, 78 years old. Abnormal screening mammogram. TECHNIQUE: Axial and longitudinal images of the LEFT breast were performed with a high resolution ultrasound transducer. # OF IMAGES: [id number] COMPARISON: Comparison is made with prior mammogram dated April 15, 2024. FINDINGS: LEFT Breast: The upper outer quadrant of the left breast was examined with ultrasound. The mammographic abnormality corresponds to a 9 mm x 6 mm x 6 mm heterogeneous slightly irregular nodule at the 12 to 1:00 position of the breast at 1 cm from the nipple. Biopsy recommended. US/Breast Limited Unilateral IMPRESSION: The mammographic abnormality corresponds to 9 mm x 6 mm x 6 mm heterogeneous slightly irregular nodule at the 12 to 1:00 position of the breast at 1 cm from the nipple. Biopsy recommended. ASSESSMENT CATEGORY: BIRADS Category 4: Suspicious - Biopsy Should Be Considered. A letter regarding these results will be sent to the patient by the facility within 30 days. Electronically Signed: Zackary Velez MD at 10:57 EDT ,
--- NOTE | 2024-04-20 08:20 | RAD_ITS ---
STUDY: X-RAY - LUMBAR SPINE REASON FOR EXAM: Female, 78 years old. Lumbar radiculopathy. TECHNIQUE: 3 view(s) of the lumbar spine were obtained. COMPARISON: November 15, 2020 FINDINGS: Osteopenia. Normal lordosis. No substantial scoliosis. Normal vertebral alignment. Endplate concavities compatible with osteoporosis unchanged. Diffuse mild to moderate lower thoracic and lumbosacral facet sclerosis unchanged. Intervertebral disc space narrowing in the lower lumbosacral spine with osteophytes most marked at L2-3 and L5-S1, both unchanged. Vascular calcification. RAD/Lumbar Spine 2 or 3 Views IMPRESSION: Stable osteopenia with lower thoracic and lumbosacral spondylosis. No interval acute finding. Electronically Signed: Jd Guaman MD at 15:12 EDT ,
== END | disposition home or self-care (01) ==
PROVIDERS: PCP Internal Medicine; Referring Provider Internal Medicine; Visit Provider Internal Medicine
DX: M54.16 Radiculopathy, lumbar region (principal); G62.9 Polyneuropathy, unspecified; N63.42 Unspecified lump in left breast, subareolar; R92.8 Other abnormal and inconclusive findings on diagnostic imaging of breast
CPT/HCPCS: 72100; 76642

== ENCOUNTER → 2024-05-11 | Outpatient (CLI) | payer MEDICARE, OTHER, SELFPAY ==
--- NOTE | 2024-05-11 12:38 | NEURO ---
NCS and/or EMG Patient Report Ordering Doctor: Kizzy Welch DATE OF SERVICE: 05/11/24 Dayana presents for electrodiagnostic testing of the lower limbs. She reports weakness in both legs and has had intermittent falls. She does report dizziness. She reports numbness in the right foot. She has a history of neck pain. Electrodiagnostic findings: Peroneal motor nerve demonstrates normal distal latency, amplitude and conduction velocity bilaterally. Tibial motor response is within normal limits bilaterally. Normal peroneal and tibial F?waves. H?reflexes normal bilaterally. Prolonged sural latency bilaterally. Needle EMG testing was performed in the lower limbs. All muscles tested showed no evidence of denervation with normal motor unit action potentials. No denervation noted in lumbar paraspinals. Electrodiagnostic impression: This is an abnormal study in the lower limbs 1. 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 This is unlikely to cause her frequent falls. 2. No electrodiagnostic evidence for peripheral polyneuropathy. 2. No electrodiagnostic evidence is noted for lumbosacral radiculopathy. Multi Select Codes Neurology Neurology Interp Codes: 70287-03 Musc test done w/n test comp (interp) (2) and 38444-80 Nrv cndj test 9-10 studies (interp)
== END | disposition home or self-care (01) ==
LOC: PSN 08:09
PROVIDERS: PCP Internal Medicine; Referring Provider Internal Medicine; Visit Provider Internal Medicine
DX: R29.898 Other symptoms and signs involving the musculoskeletal system (principal)
CPT/HCPCS: 95886; 95911

== ENCOUNTER → 2024-05-16 | Outpatient (CLI) | payer MEDICARE, OTHER, SELFPAY ==
--- NOTE | 2024-05-16 13:19 | US_ITS ---
STUDY: ULTRASOUND-GUIDED LEFT BREAST BIOPSY LEFT REASON FOR EXAM: Female, 78 years old. Left breast mass TECHNIQUE: Under direct sonographic guidance, the surgeon performed core biopsies of the 1 cm x 0.6 cm x 0.4 cm suspicious nodule at the 12:00 position of the breast at 1 cm from the nipple. A tissue clip marker was placed. COMPARISON: None. US/US Breast Biopsy 1st Lesion IMPRESSION: Ultrasound-guided breast biopsy performed by the surgeon. A tissue clip marker was placed within the nodular density. Electronically Signed: Zackary Velez MD at 8:11 EDT ,
--- NOTE | 2024-05-16 13:59 | BRBX_PTH ---
PATIENT: CAMRON JACOME LOC: [facility] U#:[id number] AGE/SX: 78/F ROOM: RE05/16/[address]: Layla Herndon PA-C : 1945 BED: DIS: 05/16/2024 SPEC #: [id number] RECD: 05/16/24 14:27 STATUS: GILL RECathy #: [id number] DIKR: 05/16/24 13:[address]: Layla Herndon DEPT: SURGICAL PATHOLOGY RECD BY: Camilla Nicholson ENTERED: 05/17/24 08:05 SP TYPE: BREAST BX OT DR: Dr. Kizzy Welch MD Tissues: Left breast, NOS Procedures: Surgery Specimen Level IV HEADER OPERATION: Ultrasound guided left breast biopsy PRE-OP DIAGNOSIS: Left breast mass TISSUE SUBMITTED: Left breast 12o'clock, 1cm from nipple Ischemic Time: 1 minute Fixation Time: 30 hours MICROSCOPIC DIAGNOSIS Left breast, ultrasound guided core biopsy: Focal minimal fibrocystic changes. Negative for atypia or malignancy. See comment. 05/18/2024 COMMENT Correlation with clinical, radiologic findings and appropriate follow up are necessary. MICROSCOPIC DESCRIPTION Slides are reviewed. GROSS DESCRIPTION Received in fixative is one container labeled with the patient's name and designated Left breast tissue. The specimen consists of multiple irregular and elongated fragments of riggs-yellow soft tissue measuring in aggregate 1.5 x 0.3 x 0.1cm. The specimen is totally submitted in one cassette. 05/17/2024 TC:5 CPT:67950
--- NOTE | 2024-05-16 14:34 | OP.PCM_ITS ---
Report of Operation Date of Procedure: 05/16/24 Pre-Operative Diagnosis: Left breast mass Post-Operative Diagnosis: Same Surgery/Procedure Performed:: Ultrasound-guided left breast biopsy Surgeon: Carolyn Wesley Type of Anesthesia: Local Specimen's removed: Left breast mass 12:00 1 cm from nipple Description of Procedure: Procedure: Left ultrasound-guided core biopsy Indications: 78 year-old female with hypoechoic nodule at 12:00 in the left breast 1 centimeters from the nipple. Risk benefits were discussed the patient and she elected to proceed with ultrasound guided core biopsy with clip placement Description of procedure: Patient was brought into the ultrasound room in the left breast was marked. A timeout was completed verifying correct patient, proc edure, site, specially, prior to beginning procedure. The left breast was prepped and draped in usual sterile fashion and using local anesthesia was obtained with 1% lidocaine with epi. The lesion was located with the ultrasound. Small incision was made with 11 blade to introduced the BARD MaxCore through the skin. Under ultrasound guidance multiple core samples were obtained using then 14-gauge BARD MaxCore and sent in formalin for pathology. The Bard dual ultra ribbon clip was then deployed into the biopsy cavity under ultrasound guidance and a picture was taken. Upon completion procedure hemostasis was obtained and a Steri-Strip and OpSite were placed. Patient was then taken to the mammography suite for clip verification. The clip was verified. The patient tolerated the procedure well and was discharged from the breast imaging department good condition. complications: none Complications none
== END | disposition home or self-care (01) ==
LOC: OPUS 13:17
PROVIDERS: PCP Internal Medicine; Referring Provider Physician Assistant; Visit Provider Physician Assistant
DX: N60.12 Diffuse cystic mastopathy of left breast (principal); R92.8 Other abnormal and inconclusive findings on diagnostic imaging of breast
CPT/HCPCS: 19083; 88305

== ENCOUNTER → 2024-05-18 | Outpatient (CLI) | payer MEDICARE, OTHER, SELFPAY ==
[2024-05-18 15:58] LABS: Anion Gap 6 (5-15); BUN 14 mg/dL (7-18); BUN/Creat Ratio 23.7 RATIO (10-20); Calcium,Total 9.4 mg/dL (8.5-10.1); Chloride 104 mmol/L (98-107); Creatinine, Serum 0.59 mg/dL (0.55-1.02); EST Glomerular Filtration Rate 104 mL/min (>60); Est Glom Filt Rate - Afr Amer 126 mL/min (>60); Glucose 85 mg/dL (74-106); Sodium Level 138 mmol/L (136-145)
== END | disposition home or self-care (01) ==
LOC: BIMLAB 13:05
PROVIDERS: PCP Internal Medicine; Referring Provider Internal Medicine; Visit Provider Internal Medicine
DX: E83.52 Hypercalcemia (principal)
CPT/HCPCS: 36415; 80048

== ENCOUNTER 2024-07-29 12:30 | Outpatient (RCR) | payer MEDICARE, OTHER, SELFPAY ==
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
--- NOTE | 2024-07-01 12:36 | HP.PTREVAL ---
Re-Evaluation Intro: Dr. Kizzy Welch MD, It has been my pleasure to treat CAMRON JACOME over the last 9 visits for Weakness of LE. Please see the progress note below for an update on the physical therapy plan of care! Subjective Subjective: Mobility is quicker and more confident. Easy to stand up without UE. Not hanging on to things as she moves at home. Using cane out ad about. Uses it to get into stores. More comfortable with it. Wants to get rid of it. Sleep is better. Doing exeercises at counter at home. 2-3x/10. No weights at home/ Will get them. Other goals include stoop and recover. Wants to dress without standing in corner. Wants to be comfortab le working in garden next spring and carry water pitcher. Wants to bend and recover I. Needs to get down to low and high shelves at home and in grocery store easier. Sometimes gets dizzy with lying at night. Objective Objective/Function: FGA is +2 30 SSTS is significantly better. Still feels wobbly and not confident with head turns moving adn weight shifting. Educated on putting both feet on floor to get out of car New POC and goals appropriate and fair prognosis Plan Plan Plan: 2x/week for another month. Please work on funcitonal weight shift balance with reaching up , stoooping down, getting off floor, head moving while walking adn get to i home program once safe to complement current sinkexercises with weights. Not interested in joining gym right now. Balance/Gait/Functional tests Balance/Special Test Scores Functional Gait Assessment Score: 22 % Disability: 26.6700 Lower Extremity Functional Score: 27 TUG Test Time Seconds: 13 Tug Test: <20 sec.=mostly independent 30 Second Chair Rise Test Seconds: 21 Goals Goals Goal 1:: I appropriate HEP to minimize future problems adn max funciton at home Goal Time Frame: 4-6 Weeks Goal Progress: Progressing Goal 2:: FGA and 12 on 30 SSTS test Goal Time Frame: 4-6 Weeks Goal Progress: Progressing Goal 3:: Pt feel 50% improved in overall mobility and strength Goal Time Frame: 4-6 Weeks Goal Progress: 40% Goal 4:: LEFS score 35 Goal Time Frame: 4-6 Weeks Goal Progress: Progressing Goal 5:: stoop and recover without worry or imbalance. Goal Time Frame: 4-6 Weeks Goal 6:: walk with head turns without hesitation and reach up [place] for gorceries without LOB. Goal Time Frame: 4-6 Weeks Goal Progress: NEW GOAL Anticipated Interventions Anticipated Interventions Patient/Client Instruction: Educate patient on: Condition and Plan of Care For the Purpose of:: To improve nutrient delivery to tissue, To improve muscle performance and motor function, To improve gait and locomotor functions and To improve safety Therapeutic Exercise to Include: Strength training and Balance training For the Purpose of:: To improve muscle performance and motor function, To increase tolerance to activity/condition/position and To improve gait and locomotor functions Re-Evaluation Ending Re-evaluation ending: Please do not hesitate to contact me at [phone] by phone or if you have questions or concerns regarding this new plan of care! Sincerely, Madi Lara, DPT, OCS, CSCS
--- NOTE | 2024-07-29 13:30 | HP.PTDCSUM ---
Discharge Summary D/C summary: It has been my pleasure to treat CAMRON JACOME referred by Dr. Kizzy Welch MD, with the diagnosis of Weakness of LE for a total of 15 visit(s). Discharge Date: 07/29/24 Please see the following information for a summary of their discharge status. Subjective Subjective: Did LE ex's at home already today Pain Left hip: Pain Intensity (Out of 10): Unrated Overall Improvement % Improvement: 40 Objective Objective/Function: Pt did well with all. No lob throughout. Pt would like to make up 2 visits with emphasis on stair work. Goals Goal 1:: I appropriate HEP to minimize future problems adn alfred dubon at home Goal Progress: Progressing Goal 2:: FGA and SSTS test Goal Progress: Progressing Goal 3:: Pt feel 50% improved in overall mobility and strength Goal Progress: 40% Goal 4:: LEFS score 35 Goal Progress: Progressing Goal 5:: stoop and recover without worry or imbalance. Goal Progress: Goal Met Goal 6:: walk with head turns without hesitation and reach up [place] for gorceries without LOB. Goal Progress: NEW GOAL Plan Plan: Re-check with PT today. D/C Information d/c sentence: If there are questions or concerns regarding this patient's physical therapy, please feel free to call me at [phone]. Thank you for the referral of this patient. Sincerely, Madi Lara, DPT, OCS, CSCS Balance/Gait/Functional tests Balance/Special Test Scores Functional Gait Assessment Score: 26 % Disability: 13.3400 Lower Extremity Functional Score: 52 TUG Test Time Seconds: 13 Tug Test: <20 sec.=mostly independent 30 Second Chair Rise Test Seconds: 22 Improvement % Improvement: 40
== END 2024-07-29 19:00 | disposition home or self-care (01) ==
LOC: PT 12:30
PROVIDERS: PCP Internal Medicine; Referring Provider Internal Medicine; Visit Provider Internal Medicine
DX: R29.898 Other symptoms and signs involving the musculoskeletal system (principal)
CPT/HCPCS: 97110; 97162

== ENCOUNTER 2024-08-12 13:17 | Day surgery (SDC) | payer MEDICARE, OTHER, SELFPAY ==
[2024-08-12 13:50] VITALS: BP 127/67; PULSE 74; RESP 16; TEMP 37.1; O2SAT 99; BMI 19.2
--- NOTE | 2024-08-12 14:30 | LES_PTH ---
PATIENT: CAMRON [place]ACOME [place] [facility] [facility] [place][id number] AGE/SX: 78/F ROOM: RE08/12/[address]: Dr. Zulema Argueta MD : 1945 BED: DIS: 08/12/2024 SPEC #: [id number] RECD: 08/12/24 17:01 STATUS: GILL SEARS #: [id number] DIRK: 08/12/24 14:[address]: Zulema Argueta DEPT: SURGICAL PATHOLOGY RECD BY: Camilla Nicholson ENTERED: 08/15/24 09:45 SP TYPE: Lesion OTHR DR: Dr. Kizzy Welch MD Tissues: Skin of wrist and hand Procedures: Surgery Specimen Level IV HEADER OPERATION: Excision lesion left wrist (1.5cm) PRE-OP DIAGNOSIS: Neoplasm of uncertain behavior of skin of upper extremity TISSUE SUBMITTED: Neoplasm of uncertain behavior of skin of upper extremity MICROSCOPIC DIAGNOSIS Left wrist skin lesion, excision: Squamous cell carcinoma insitu, completely excised. Actinic keratosis and solar elastosis. See comment. 08/16/2024 COMMENT The tumor measures 0.4cm in greatest width. MICROSCOPIC DESCRIPTION Slides are reviewed. GROSS DESCRIPTION Received in fixative is one container labeled with the patient's name and designated Left upper extremity neoplasm of uncertain behavior of skin. The specimen consists of a piece of riggs-white skin measuring 1.0 x 0.7 x 0.2cm. The specimen is inked, serially sectioned and submitted entirely in one cassette. AJ 08/15/2024 TC:0 CPT:71321
--- NOTE | 2024-08-12 15:01 | PCM.HP.BLA ---
History and Physical Date of Admission: 08/12/24 The patient is examined and there are no changes to the H&P dated 07/20/2024. She presents for excision of a neoplasm of her left dorsal wrist. Informed consent was obtained. The specimen will be sent to pathology for evaluation. She is marked in the preop holding area prior to surgery. Assessment & Plan Assessment/Plan (1) Neoplasm of uncertain behavior of skin of upper extremity: PLAN: Plan For excision neoplasm right dorsal wrist
[2024-08-12 15:12] VITALS: BP 122/72; O2SAT 100; O2SAT 96; O2SAT 98; O2SAT 99
[2024-08-12] MEDS: Lidocaine 1% /Epi 1:100 9 ML, Sodium Bicarbonate 1 MEQ OPERA.SITE (15:33)
--- NOTE | 2024-08-12 15:37 | DCINST_ITS ---
Discharge Instructions Dressing / Incision Additional Dressing/Incision Instructions:: You may shower over the dressing, but do not scrub. You can leave the dressing in place until seen in the office. If you remove the dressing (or falls off) you can replace this with a daily Band-Aid. Keep your hand elevated is much as you can to reduce swelling and bruising. Take the oral antibiotic (Keflex) 2 times a day until finished. Follow Up Care Please Follow Up With: Zulema Argueta MD When: 1 to 2 weeks Test Results: Test results from this visit will be discussed in further detail at your follow- up appointment, if applicable. Discharge Plan Admission Attending Provider: Zulema Argueta Primary Care Provider: Kizzy Welch Instructions Print Language: Italian Discharge Orders/Prescriptions Prescriptions: New cephalexin 500 mg capsule 500 mg PO BID 5 Days Qty: 10 0RF No Action cholecalciferol (vitamin D3) 125 mcg (5,000 unit) capsule 125 mcg PO DAILY ascorbic acid (vitamin C) 500 mg capsule PO simvastatin 20 mg tablet 20 mg PO DAILY Qty: 90 3RF meloxicam 7.5 mg tablet 7.5 mg PO DAILY PRN (Reason: pain) Qty: 30 3RF Ultra CoQ10 75 mg capsule 75 mg PO QDAY Prolia 60 mg/mL syringe 60 mg subcut [id number] Qty: 1 4RF Referrals / Follow Up: Kizzy Welch MD [Primary Care Provider] - Disposition Disposition (needs filled in before D/C Order can be placed): Home, Self Care
--- NOTE | 2024-08-12 15:40 | OP.PCM_ITS ---
Problems Associated Problem List Diagnoses (1) Neoplasm of uncertain behavior of skin of upper extremity: Operative Report (Standard) Operative Information Date of Procedure: 08/12/24 Pre-Operative Diagnosis: Neoplasm left dorsal wrist of uncertain behavior Post-Operative Diagnosis: Same Surgery/Procedure Performed: Excision neoplasm left dorsal wrist (2.0 cm) loss control manager: No Type of Anesthesia: Local RN Documented Start/Stop Times: Operation Date: 08/12/24 14:30 Case Time Into Pre-Op 08/12/24 13:31 Out of Pre-Op 08/12/24 15:06 Into Room 08/12/24 15:10 Procedure Start 08/12/24 15:21 Procedure End 08/12/24 15:34 Anesthesia End 08/12/24 15:35 Out of Room 08/12/24 15:35 Procedure Start Time: 15:21 Procedure Stop Time: 15:34 Select all DRAINS/GRAFTS/IMPLANTS that apply: None Estimated Blood Loss: Minimal Specimen collected: Yes Description of specimen(s) removed: Neoplasm left breast Description of surgery: Patient presents with a growing or changing neoplasm of the left dorsal wrist. She presents for excision of the neoplasm with submission for pathologic evalu ation. Procedure: the patient was brought to the operating room and positioned in a supine position. The left wrist is prepped and draped in the usual sterile fashion. 1% Xylocaine buffered with sodium bicarb is used for local anesthetic. Following this, the site is excised using a radiofrequency cautery. Hemostasis is controlled with cautery. The wound is then closed using a running chromic suture. Dermabond Steri-Strips and a Tegaderm are used to dress the site. The specimen is passed off the operative field to be sent to pathology. Needle and sponge counts are correct. The patient tolerated the procedure well Surgical Findings: Pending pathology Complications Complications: No Admit VTE Documentation VTE Mechan Device Prophylaxis: None Reason prophylaxis not ordered: Treatment Not Indicated
[2024-08-12 15:44] VITALS: BP 127/67; BP 138/67; PULSE 77; RESP 17; TEMP 37.3; O2SAT 96
== END 2024-08-12 16:02 | disposition home or self-care (01) ==
LOC: SDC 13:18 → AC 13:20
PROVIDERS: PCP Internal Medicine; Referring Provider Plastic Surgery; Visit Provider Plastic Surgery
PROC: (CPT 11602; principal; 2024-08-12 14:15)
DX: D04.62 Carcinoma in situ of skin of left upper limb, including shoulder (principal); L57.0 Actinic keratosis; L57.8 Other skin changes due to chronic exposure to nonionizing radiation
CPT/HCPCS: 11602; 88305

== ENCOUNTER → 2024-11-22 | Outpatient (CLI) | payer MEDICARE, OTHER, SELFPAY ==
--- NOTE | 2024-11-22 09:08 | CDU_ITS ---
Reason For Study Reason For Study: Amaurosis Fugax Rt. Velocities/BP Lt. Velocities/BP Prox CCA 53/10 cm/sec. Prox CCA 93/22 cm/sec. Mid CCA 66/20 cm/sec. Mid CCA 89/19 cm/sec. Dist CCA 57/14 cm/sec. Dist CCA 62/13 cm/sec. Prox ICA 49/12 cm/sec. Prox ICA 64/19 cm/sec. Mid ICA 56/15 cm/sec. Mid ICA 75/23 cm/sec. Dist ICA 84/25 cm/sec. Dist ICA 93/31 cm/sec. Rt. ICA/CCA = 1.3. Lt. ICA/CCA = 1.0. Prox ECA 62/6 cm/sec. Prox ECA 82/5 cm/sec. Rt. Vert. 51/12 cm/sec. Lt. Vert. 68/13 cm/sec. Right Extracranial There is intimal thickening but no significant atherosclerotic plaque noted in the right common carotid artery. There is heterogeneous, irregular atherosclerotic plaque noted in the right internal carotid artery. There is intimal thickening but no significant atherosclerotic plaque noted in the right external carotid artery. Antegrade flow is noted in the right vertebral artery. Left Extracranial There is intimal thickening but no significant atherosclerotic plaque noted in the left common carotid artery. There is heterogeneous, irregular atherosclerotic plaque noted in the left internal carotid artery. There is intimal thickening but no significant atherosclerotic plaque noted in the left external carotid artery. Antegrade flow is noted in the left vertebral artery. Procedure Carotid Duplex 85325. This is a Carotid Duplex examination using B-mode, color flow and specral Doppler. Exam performed in department. VL/Carotid Duplex Ultrasound Interpretation Summary Mild (<50%) stenosis right extracranial internal carotid. Mild (<50%) stenosis left extracranial internal carotid. Patent and antegrade vertebrals bilaterally. Ordering Physician: En Martel Referring Physician: Kizzy eWlch Performed By: Viji Cohen, RDCS, RVT
== END | disposition home or self-care (01) ==
LOC: CVS 09:06
PROVIDERS: PCP Internal Medicine; Referring Provider Ophthalmology; Visit Provider Ophthalmology
DX: G45.3 Amaurosis fugax (principal)
CPT/HCPCS: 93880

== ENCOUNTER → 2024-11-23 | Outpatient (CLI) | payer MEDICARE, OTHER, SELFPAY ==
[2024-11-23 15:35] LABS: Absolute Neutrophil Count 3.2 X10^3/uL (2.0-7.7); Basophil# 0.03 X10^3/uL; Basophil% 0.5 % (0-1); Eosinophil# 0.05 X10^3/uL; Eosinophils% 0.9 % (0-5); Hematocrit 37.5 % (37-47); Hemoglobin 12.2 g/dL (12.0-15.0); Lymphocyte % 35.8 % (19-41); Mean Corp Hgb Conc 32.5 g/dL (32-36); Mean Corpuscular Hgb 29.1 pg (27.0-32.0); Mean Corpuscular Volume 89.5 fL (81-99); Mean Platelet Vol. 9.7 fl (6.2-12.0); Monocyte# 0.43 X10^3/uL; Monocyte% 7.3 % (0-10); NRBC Flagged by Analyzer 0 % (0-5); Neutrophil # 3.24 X10^3/uL (2.7-7.7); Neutrophil % 55.3 % (47-70); Platelet Count 199 K/mm3 (150-450); RBC Distribution Width CV 13.4 % (11.6-14.6); RBC Distribution Width SD 44.2 fl (35.1-43.9); Red Blood Count 4.19 M/mm3 (4.2-5.4); White Blood Count 5.9 K/mm3 (4.4-11.0)
[2024-11-23 16:10] LABS: ALB/GLOB Ratio 1.5 RATIO (0.9-2.4); AST(SGOT) 28 U/L (<=31); Alanine Aminotransfer ALT/SGPT 16 U/L (<=34); Albumin, Serum 4.5 g/dL (3.4-4.8); Alkaline Phosphatase 46 U/L (35-104); Anion Gap 11 (5-15); BUN 17 mg/dL (4-19); BUN/Creat Ratio 28.5 RATIO (10-20); Calcium,Total 9.3 mg/dL (7.6-11.0); Carbon Dioxide 23.9 mmol/L (21.0-32.0); Chloride 100 mmol/L (98-108); Creatinine, Serum 0.61 mg/dL (0.70-1.20); EST Glomerular Filtration Rate 90 (>60); Glucose 89 mg/dL (70-99); Potassium 4.3 mmol/L (3.3-5.1); Protein, Total 7.4 g/dL (5.9-8.4); Sodium Level 135 mmol/L (133-145); Total Bilirubin 0.33 mg/dL (0.00-1.30)
== END | disposition home or self-care (01) ==
LOC: BIMLAB 13:52
PROVIDERS: PCP Internal Medicine; Referring Provider Internal Medicine; Visit Provider Internal Medicine
DX: E78.2 Mixed hyperlipidemia (principal)
CPT/HCPCS: 36415; 80053; 84439; 84443; 85025

== ENCOUNTER → 2025-04-18 | Outpatient (CLI) | payer MEDICARE, OTHER, SELFPAY ==
--- NOTE | 2025-04-18 10:15 | BI_ITS ---
EXAM: SCRN MAMM (CAD)W/PUMA BILAT DATE: 04/18/2025 CLINICAL HISTORY: F, Age 79 y/o , BREAST CANCER SCREENING History of prior 3 stereotactic breast biopsies and aspirations. No family history. TECHNIQUE: Procedure Code: [id number] Modality: MG Procedure: SCRN MAMM (CAD)W/PUMA BILAT COMPARISON: Prior exam(s) dated May 16, 2024. FINDINGS: TISSUE DENSITY: The breasts are heterogeneously dense, which may obscure small masses. Bilateral Breast Mammographic Findings: Stable 1.6 cm by 1.5 cm nodule in the anterior upper medial aspect of the left breast. A tissue clip marker is seen within it. A tissue clip marker is also seen in the retroareolar region of the left breast. No suspicious masses, areas of developing architectural distortion, or suspicious calcifications. There has been no significant interval change. BI/SCRN MAMM (CAD)W/PUMA BILAT IMPRESSION: Stable screening bilateral mammogram. OVERALL FINAL ASSESSMENT BI-RADS 2: BENIGN RECOMMENDATION: Routine annual follow-up in 1 Year A letter with findings and recommendations will be mailed to the patient. Reading Location: [facility]
== END | disposition home or self-care (01) ==
LOC: OPBI 09:52
PROVIDERS: PCP Internal Medicine; Referring Provider Internal Medicine; Visit Provider Internal Medicine
DX: Z12.31 Encounter for screening mammogram for malignant neoplasm of breast (principal)
CPT/HCPCS: 77063; 77067

== ENCOUNTER → 2025-04-26 | Outpatient (CLI) | payer MEDICARE, OTHER, SELFPAY ==
--- NOTE | 2025-04-26 08:55 | BD_ITS ---
PROCEDURE: DEXA BONE DENSITY STUDY 04/26/2025 REASON FOR EXAM: OSTEOPOROSIS F, age 79 y/o . Postmenopausal. TECHNIQUE: Procedure Code: BDDBD Modality: DX Procedure: DEXA BONE DENSITY STUDY COMPARISON: April 14, 2023. FINDINGS: BMD and T-SCORES Lumbar spine: 0.844 g/cm2, T-score -1.8 Levels: L1 through L4 Change from prior: Improvement of 6.7%. Left femoral neck: 0.515 g/cm2, T-score -3.0 Femoral neck comparison data not recommended for monitoring change. Left total hip: 0.611 g/cm2, T-score -2.7 Change from prior: Loss of 1.4%. Right femoral neck: 0.467 g/cm2, T-score -3.4 Femoral neck comparison data not recommended for monitoring change. Right total hip: 0.586 g/cm2, T-score -2.9 Change from prior: Loss of 0.8%. The World Health Organization has defined the following categories based on bone density: Normal bone density: T-score equal to or greater than -1.0 Osteopenia: T-score between -1.0 and -2.5 Osteoporosis: T-score equal to or less than -2.5 FRAX (or Comparable) Fracture Risk Assessment: 10 Year Probability of Fracture: Major Osteoporotic Fracture: 23% Hip Fracture: 11% (Note: FRAX is not to be reported in setting of normal range bone density, osteoporosis on DEXA, known history of osteoporosis, prior osteoporotic hip or vertebral fracture, or for any patient undergoing pharmacological treatment for bone loss.) The National Osteoporosis Foundation (NOF) recommends pharmacological treatment for patients with a FRAX 10-year risk of 3% or higher for a hip fracture, or 20% or higher for a major osteoporotic fracture, to prevent osteoporosis and reduce fracture risk. The patient does meet the pharmacological treatment recommendations for prevention of osteoporosis. BD/Dexa Bone Density Study IMPRESSION: OSTEOPOROSIS. Recommend follow-up as clinically warranted. Reading Location: [place] [id number]
[2025-04-26 09:18] LABS: Hematocrit 37.9 % (37-47); Hemoglobin 12.5 g/dL (12.0-15.0); Immature Granulocytes Count 0.020 X10^3/uL (0.0-0.0); Mean Corp Hgb Conc 33.0 g/dL (32-36); Mean Corpuscular Volume 90.2 fL (81-99); Mean Platelet Vol. 9.1 fl (6.2-12.0); NRBC Flagged by Analyzer 0 % (0-5); Platelet Count 199 K/mm3 (150-450); RBC Distribution Width CV 13.4 % (11.6-14.6); RBC Distribution Width SD 44.0 fl (35.1-43.9); Red Blood Count 4.20 M/mm3 (4.2-5.4); White Blood Count 6.1 K/mm3 (4.4-11.0)
[2025-04-26 10:22] LABS: AST(SGOT) 30 U/L (<=31); Alanine Aminotransfer ALT/SGPT 19 U/L (<=34); Albumin, Serum 4.6 g/dL (3.4-4.8); Alkaline Phosphatase 54 U/L (35-104); Anion Gap 11 (5-15); BUN 14 mg/dL (4-19); BUN/Creat Ratio 20.5 RATIO (10-20); Calcium,Total 9.7 mg/dL (7.6-11.0); Carbon Dioxide 24.9 mmol/L (21.0-32.0); Chloride 104 mmol/L (98-108); Cholesterol 148 mg/dL (<=200); Globulin 3.1 g/dL (2.2-4.2); Glucose 88 mg/dL (70-99); Low Density Lipoprotein Calc. 58 mg/dL; Potassium 4.2 mmol/L (3.3-5.1); Triglycerides 70 mg/dL; Very Low Density Lipoprotein 14 mg/dL (5-40); Vitamin D,25 Hydroxy 41.7 ng/mL (30-100); cholesterol:hdl ratio screen 1.95
== END | disposition home or self-care (01) ==
PROVIDERS: PCP Internal Medicine; Referring Provider Internal Medicine; Visit Provider Internal Medicine
DX: M81.0 Age-related osteoporosis without current pathological fracture (principal); E78.2 Mixed hyperlipidemia; I10 Essential (primary) hypertension
CPT/HCPCS: 36415; 77080; 80053; 80061; 82306; 85025